=== PATIENT | male | born 1990 | race African-American/Black ===

== ENCOUNTER 2016-12-19 02:08 | Emergency (ER) | payer SELFPAY ==
[~2016-12-19] VITALS: Ht 167.6 cm; Wt 93.4 kg
[2016-12-19 02:10] VITALS: BP 136/73
[2016-12-19] MEDS ORDERED: LIDOCAINE 1% / SOD BICARB 8.4% 20 ML VIAL. IJ ONE (02:39)
[2016-12-19] MEDS ORDERED: IBUPROFEN 600 MG TABLET. PO ONE (03:00)
[2016-12-19] MEDS ORDERED: SMZ/TMP 800/160MG TABLET. PO ONE (03:00)
[2016-12-19] MEDS ORDERED: HYDROCODONE/APAP 5/325MG TABLET. PO ONE (03:00)
[2016-12-19] MEDS ORDERED: IBUP-1007 PO (03:05)
[2016-12-19] MEDS ORDERED: SULF1TAB24 PO (03:05)
[2016-12-19] MEDS ORDERED: HYDR-2678 PO (03:05)
--- NOTE | 2016-12-19 03:05 | PHYS DOC ---
Past Medical History Past Medical History: No Pertinent History Past Surgical History: No Surgical History Alcohol Use: None Drug Use: None Adult General Chief Complaint Chief Complaint: ABSCESS HPI HPI Patient is a 26 year old gentleman presents here today secondary to a pilonidal abscess. Patient reports that he has pain to his buttock area. Patient reports he thought he got bit by a spider. Patient denies any fevers shakes chills nausea vomiting diarrhea. Patient reports he works for [employer]. Patient denies any history of diabetes liver longer kidney problems. Review of Systems Review of Systems Constitutional: Denies fever or chills [] Eyes: Denies change in visual acuity, redness, or eye pain [] All other review systems are negative except as documented in the history of present illness portion. Current Medications Current Medications Current Medications Medications (Trade) Dose Ordered Sig/Davin Start Time Stop Time Status Last Admin Dose Admin Acetaminophen/ Hydrocodone Bitart (Lortab 5/325) 1 tab 1X ONCE 12/19/16 03:00 12/19/16 03:01 DC 12/19/16 02:57 1 TAB Ibuprofen (Motrin) 600 mg 1X ONCE 12/19/16 03:00 12/19/16 03:01 DC 12/19/16 02:56 600 MG Lidocaine/Sodium Bicarbonate (Buffered Lidocaine 1%) 20 ml STK-MED ONCE 12/19/16 02:39 12/19/16 02:40 DC Trimethoprim/ Sulfamethoxazole (Bactrim Ds) 2 tab 1X ONCE 12/19/16 03:00 12/19/16 03:01 DC 12/19/16 02:57 2 TAB Allergies Allergies Allergies Coded Allergies Type Severity Reaction Last Updated Verified No Known Drug Allergies 12/19/16 No Physical Exam Physical Exam Constitutional: Well developed, well nourished, no acute distress, non-toxic appearance. [] Cardiovascular:Heart rate regular rhythm, no murmur [] Lungs & Thorax: Bilateral breath sounds clear to auscultation [] Abdomen: Bowel sounds normal, soft, no tenderness, no masses, no pulsatile masses. [] Skin: Warm, dry, no erythema, no rash. Pilonidal abscess. Fluctuant area and fullness to the palatal region. This is extremely tender. [] Back: No tenderness, no CVA tenderness. [] Extremities: No tenderness, no cyanosis, no clubbing, ROM intact, no edema. [] Neurologic: Alert and oriented X 3, normal motor function, normal sensory function, no focal deficits noted. [] Psychologic: Affect normal, judgement normal, mood normal. [] Current Patient Data Vital Signs Vital Signs Date Time Temp Pulse Resp B/P Pulse Ox O2 Delivery O2 Flow Rate FiO2 12/19/16 02:10 99.3 86 18 98 Room Air 99.3 EKG EKG [] Radiology/Procedures Radiology/Procedures [] Incision and drainage of pilonidal abscess. Including a sterile fashion utilizing 2 mL of 1% buffered lidocaine the wound was prepped with Betadine. A 1 cm incision was made into the pilonidal groove with an 11 blade scalpel. Copious amounts of purulent malodorous drainage was obtained. All loculations were broken with forceps.. The wound was packed with 1 inch sterile gauze. Wound was covered with gauze and tape. Patient was given tape and gauze to go home with an order to change the dressing. Patient was instructed to return to the ER in 2 days for wound check and packing change. Patient was given a prescription for Bactrim DS 2 pills twice a day 10 days as well as Lortab and ibuprofen. Patient tolerated procedure well. Course & Med Decision Making Course & Med Decision Making Pertinent Labs and Imaging studies reviewed. (See chart for details) [] Dragon Disclaimer Dragon Disclaimer This electronic medical record was generated, in whole or in part, using a voice recognition dictation system. Departure Departure Impression: Primary Impression: Pilonidal cyst with abscess Disposition: HOME, SELF-CARE Condition: IMPROVED Referrals: NO PCP (PCP) Patient Instructions: Incision and Drainage, Care After, Pilonidal Cyst, Care After Additional Instructions: Please follow up with her doctor in 2 days for a wound check and packing change. If he do not have a family physician that he may return to the ER for a wound check and packing change. These filled the prescriptions that were given to an taken as directed. Scripts Hydrocodone/Acetaminophen (Lortab 5-325 mg Tablet)1 Each Tablet1 Tab PO PRN Q6HRS PRN PAIN #14 TAB Prov:ARTIS DE DIOS MD 12/19/16 Ibuprofen 600 Mg Haxxax475 Mg PO PRN Q6HRS PRN PAIN #20 TAB Prov:ARTIS DE DIOS MD 12/19/16 Sulfamethoxazole/Trimethoprim (Bactrim Ds Tablet)1 Each Tablet2 Tab PO BID 10 Days Prov:ARTIS DE DIOS MD 12/19/16 ARTIS DE DIOS MD Dec 19, 2016 03:05
== END 2016-12-19 03:15 | disposition home or self-care (01) ==
LOC: ER 02:08
DX: L05.01 Pilonidal cyst with abscess (principal)
CPT/HCPCS: 10081; 99284-25